=== PATIENT | male | born 1960 | race Hispanic/Latino ===

== ENCOUNTER 2018-04-04 06:35 | Day surgery (SDC) | payer OTHER ==
[2018-04-03 15:29] VITALS: BP 175/76
[2018-04-03 16:12] LABS: BILIRUBIN,URINE Negative (NEGATIVE); COLOR,URINE Yellow (YELLOW); GLUCOSE, URINE (UA) >=1000 mg/dL (NEGATIVE); KETONES,URINE Negative (NEGATIVE); LEUKOCYTE ESTERASE ,URINE Negative (NEGATIVE); NITRATE,URINE Negative (NEGATIVE); OCCULT BLOOD,URINE Trace (NEGATIVE); PH,URINE 5.5 (5.0-8.0); PROTEIN,URINE Trace (NEGATIVE); UROBILINOGEN,URINE 0.2 mg/dL (0.2-1.0)
[2018-04-03 16:25] LABS: APPEARANCE,URINE SLIGHTLY CLOUDY (CLEAR)
[2018-04-03 16:31] LABS: BACTERIA,URINE Rare /HPF (None Seen); RBC,URINE 0-1 /HPF (0-1); SQUAMOUS EPITHELIAL CELL,UR Rare /HPF (0-2); WBC,URINE 0-1 /HPF (0-1)
[~2018-04-04] VITALS: Ht 180.3 cm; Wt 102.5 kg
[2018-04-04] VITALS (19 sets, daily range): BP systolic 104–148; BP diastolic 57–82
[~2018-04-04 06:35] MED LIST: GEMF600T3 PO; LISI1TAB11 PO; METF500T6 PO; METO50TA18 PO; SIMV20TA6 PO
[2018-04-04] MEDS ORDERED: SODIUM CHLORIDE 0.9% 1000ML 1,000 ML IV ONE (07:24)
[2018-04-04] MEDS ORDERED: BUPIVACAINE/PF 0.25% 30ML VIAL IJ ONE (07:30)
[2018-04-04] MEDS ORDERED: FENTANYL CITRATE PF 50 MCG/1 ML 2ML VIAL ONE (08:11)
[2018-04-04] MEDS ORDERED: LIDOCAINE PF 2% 5ML ABBOJECT ONE (08:11)
[2018-04-04] MEDS ORDERED: MIDAZOLAM HCL 1 MG/ML 2ML VIAL ONE (08:11)
[2018-04-04] MEDS ORDERED: NEOSTIGMINE 5MG/5ML SYR IV ONE (08:11)
[2018-04-04] MEDS ORDERED: DEXAMETHASONE SOD PHOSPHATE 10MG/ML 1ML VIAL ONE (08:11)
[2018-04-04] MEDS ORDERED: GLYCOPYRROLATE 0.2 MG/ML 5 ML VIAL ONE (08:11)
[2018-04-04] MEDS ORDERED: PROPOFOL 10 MG/ML 20ML VIAL IV ONE (08:11)
[2018-04-04] MEDS ORDERED: EPHEDRINE SULFATE 50 MG/ML AMPULE ONE (08:53)
== END 2018-04-04 11:30 | disposition home or self-care (01) ==
LOC: DAH 06:35
PROVIDERS: ATTEND Surgery
DX: K42.9 Umbilical hernia without obstruction or gangrene (principal); I10 Essential (primary) hypertension; E11.9 Type 2 diabetes mellitus without complications; Z79.899 Other long term (current) drug therapy; Z79.84 Long term (current) use of oral hypoglycemic drugs
CPT/HCPCS: 49585; 81001; 82948 ×2; A4450; A4452; A4606; C1781; J1100; J2001; J2250; J2704; J2710; J3010; J3490 ×3; J7030 ×2